=== PATIENT | female | born 1995 | race Hispanic/Latino ===

== ENCOUNTER 2020-09-17 05:27 | Inpatient (IN) | payer OTHER ==
[2020-09-17] MEDS ORDERED: OXYTOCIN/LR 20 UNIT/1,000 ML BAG IV ONE (05:35)
[2020-09-17] MEDS ORDERED: Ringers Lactate 2,000 ML IV ONE (06:19)
[2020-09-17 06:29] LABS: Absolute Lymphocytes (CBC) 2.6 K/uL (0.7-4.9); Basophils % 0.3 % (0-1.3); Hematocrit 32.5 % (36.0-45.0); MPV 8.5 fL (7.6-11.3); RBC Red Blood Cell Count 3.76 M/uL (3.86-4.86)
[2020-09-17 06:30] VITALS: BMI 35.9
[2020-09-17] MEDS ORDERED: PROMETHAZINE INJ 25 MG/ML AMP IM PRN (06:52)
[2020-09-17] MEDS ORDERED: Ringers Lactate 1,000 ML IV PRN (06:52)
[2020-09-17] MEDS ORDERED: MIDAZOLAM HCL 2 MG/2 ML INJ IV PRN (06:52)
[2020-09-17] MEDS ORDERED: BUTORPHANOL 1 MG/ML INJ IV PRN (06:52)
[2020-09-17] MEDS ORDERED: METHYLERGONOVINE 0.2MG/ML AMP IM PRN (06:52)
[2020-09-17] MEDS ORDERED: MEPERIDINE HCL 25 MG/ML SYR IV PRN (06:52)
[2020-09-17] MEDS ORDERED: PENICILLIN 5 MU in NA CHLORIDE 0.9% 100 ML IV ONE (06:52)
[2020-09-17] MEDS ORDERED: CARBOPROST TROME 250 MCG/ML IM PRN (06:52)
[2020-09-17 06:54] LABS: Urine Appearance CLOUDY (Clear); Urine Bilirubin NEGATIVE (Negataive); Urine Blood NEGATIVE (Negative); Urine Color YELLOW (Yellow); Urine Glucose NEGATIVE (Negative); Urine Protein NEGATIVE (Negative); Urine Urobilinogen 0.2 mg/dL (0.2-1.0)
[2020-09-17] MEDS ORDERED: Ringers Lactate 1,000 ML IV SCH (07:00)
[2020-09-17] MEDS ORDERED: OXYTOCIN/LR 20 UNIT/1,000 ML BAG IV SCH (07:00)
[2020-09-17 07:10] LABS: Urine Bacteria 20-50 /HPF (<20); Urine RBC <5 /HPF (NONE SEEN); Urine Urothelial Cells <5 /HPF (NONE SEEN)
[2020-09-17] MEDS ORDERED: FAMOTIDINE 20 MG/2 ML VIAL IV PRN (07:17)
[2020-09-17] MEDS ORDERED: FAMOTIDINE 20 MG/2 ML VIAL IV ONE (07:40)
[2020-09-17] MEDS ORDERED: miSOPROStoL 100 MCG TAB VAG PRN (08:18)
--- NOTE | 2020-09-17 11:41 | PREOPHP ---
Date of Admission: 09/17/2020 History Of Present Illness: A 25-year-old, 3, para 1, 39 weeks 3 days, requesting induction. Pros and cons of this thoroughly discussed. This patient is not significantly dilated. The patien t wishes to proceed. She has been started on penicillin. She is marifer regularly, but still is only 1.5, very posterior, 50% and the baby is at -1 to -2 station. We will await further descent of the baby before we attempt membrane rupture. She knows if membrane rupture occurs spontaneously to let the nurses know so we can make sure there is no cord prolapse. Full labor talk given. Family History: Noncontributory. Allergies: SHE IS NOT ALLERGIC TO ANYTHING. Social History: She does not smoke. Physical Examination: HEENT: Clear. Pupils equal, round, reactive to light and accommodation. Conjunctivae well perfused . No oral, lingual, or buccal lesions. Chest and Lungs: Clear. Heart: Without murmurs, thrills, heaves, or rubs. Breasts: Not examined. Abdomen: Term size. Extremities: Clear without edema, cyanosis, or clubbing. Pelvic: As stated. Assessment/plan: Anticipate delivery sometime later today. O positive, immune to rubella. COVID ne gative. Beta strep positive and she is receiving antibiotics. BYRON/CATRINA Voice ID: [id number]
[2020-09-17] MEDS ORDERED: PENICILLIN 2.5 MU in NA CHLORIDE 0.9% 100 ML IV SCH (13:00)
--- NOTE | 2020-09-17 13:10 | PN ---
The patient is basically having no contractions. I have given her 3 options. I suggested she go radha e and see me again on Tuesday and then to see if she is ready to induce or even again on the next . She is only 39 weeks and 3 days. Her suggested the same thing to her, but she and her m other decided that they wished to proceed with Cytotec. Discussion including hypertonic contractions and the risk of discussed. The patient also given the option of going back on the oxytocin , but she has decided to go with Cytotec. We have inserted 50 mcg of Cytotec. We will again in 6 ho urs if needed up to 3 doses. Full discussion with patient and she has decided on this route which is reasonable, but I do not think it is the best route to approach this with and have stated so. BYRON/CATRINA Voice ID: [id number] Report ID: [id number]
[2020-09-17] MEDS ORDERED: METHYLERGONOVINE 0.2MG/ML AMP IM ONE (19:39)
--- NOTE | 2020-09-17 19:56 | PN ---
Bailey Lomas had her second dose of Cytotec 50 mcg started at 2:30 this afternoon. She is contrac ting regularly. Baby looks good. She seems to be in good spirits at this point. She is now 3 cm, s till somewhat posterior. Baby does come down, but still to have rupture of membranes. She knows if membranes rupture spontaneously, she is to tell the nurse and may check her immediately. We plan on putting the third Cytotec dose and at 8:30 this evening unless membranes of rupture and then wait unt il around 2 to 4 in the morning to start oxytocin if it is necessary. The patient says she is good w ith that and wants to continue on the way we are going. She has had 1 dose of Stadol and now is quit e alert, does not seem to be requesting any other analgesics at this point. She has had 3 doses of p enicillin, but she is really not in active labor yet. We will hold up on the fourth dose of penicill in until either rupture of membranes occur or she gets to 4-5 cm in which case we will start it back at that point. BYRON/CATRINA Voice ID: [id number] Report ID: [id number]
[2020-09-17] MEDS ORDERED: FENTANYL CITR 100 MCG/2 ML IV ONE (21:06)
[2020-09-17] MEDS ORDERED: ROPIVACAINE HCL 0.2% 20ML AMP EP ONE (21:09)
[2020-09-17] MEDS ORDERED: ROPIVACAINE HCL/PF 0.2% 10 ML VIAL EP ONE (21:10)
[2020-09-17] MEDS ORDERED: ROPIVACAINE HCL 100 ML EP ONE (21:23)
[2020-09-17] MEDS ORDERED: ROPIVACAINE HCL 0 ML ONE (21:23)
[2020-09-17] MEDS ORDERED: FENTANYL CITR 100 MCG/2 ML ONE (21:23)
[2020-09-17 21:24] LABS: RPR (Rapid Plasma Reagin) NON-REACT (NON-REACT)
[2020-09-17] MEDS ORDERED: LIDOCAINE 2% 20 ML MDV IV ONE (21:49)
[2020-09-17] MEDS ORDERED: LIDOCAINE 2% MPF 5 ML VIAL ONE (22:06)
[2020-09-18] MEDS ORDERED: NA CIT/CITRIC AC 30 ML ORAL UDC PO ONE (01:47)
[2020-09-18] MEDS ORDERED: METHYLERGONOVINE 0.2MG/ML AMP IM ONE ×2 (01:52→02:44)
[2020-09-18] MEDS ORDERED: NA CIT/CITRIC AC 30 ML ORAL UDC ONE ×2 (02:05→02:35)
--- NOTE | 2020-09-18 02:06 | PN ---
The patient has progressed to about 7.5 to 8 cm. She has edematous anterior lip. The baby is straig ht occiput posterior and still about 0 station. I have put on a scalp electrode. The baby is starti ng to demonstrate a tachycardia in the 160- 170 range. No major decelerations. We are going to look at the variability and see what that looks like. We have shut off the Pitocin, but she is still cou rse marifer regularly. She is quite comfortable with her epidural. Situation explained to her a nd the family. We will see in the next few minutes whether we decided proceed with or qiana nue with vaginal delivery attempt. BYRON/CATRINA Voice ID: [id number] Report ID: [id number]
[2020-09-18] MEDS ORDERED: METOCLOPRAMIDE 10 MG/2mL INJ IV ONE (02:08)
[2020-09-18] MEDS ORDERED: CEFAZOLIN/NS 1gm 1 GM/50 ML BAG IVPB ONE (02:08)
[2020-09-18] MEDS ORDERED: FAMOTIDINE 20 MG/2 ML VIAL IV ONE (02:08)
[2020-09-18] MEDS ORDERED: METOCLOPRAMIDE 10 MG/2mL INJ ONE (02:35)
[2020-09-18] MEDS ORDERED: CEFAZOLIN/SWI 1gm 1 GM/10 ML SYR ONE (02:37)
[2020-09-18] MEDS ORDERED: CARBOPROST TROME 250 MCG/ML IM ONE (02:44)
[2020-09-18] MEDS ORDERED: LIDOCAINE 2% W/EPI 1:200,000 MPF 20 ML VIAL IM ONE (02:54)
[2020-09-18] MEDS ORDERED: OXYTOCIN 10 UNIT/ML ML IV ONE (03:08)
[2020-09-18] MEDS ORDERED: propofoL 200 MG/20 ML VIAL IV ONE (03:15)
[2020-09-18] MEDS ORDERED: ONDANSETRON 4 MG/2 ML VIAL ONE (03:29)
[2020-09-18] MEDS ORDERED: MORPHINE SULFATE/PF 1 MG/ML (10 ML AMP) ONE (03:30)
[2020-09-18] MEDS ORDERED: BISACODYL 10 MG RECTAL SUPP RC PRN (03:32)
[2020-09-18] MEDS ORDERED: ACETAMINOPHEN 500 MG TAB PO PRN ×2 (03:32)
[2020-09-18] MEDS ORDERED: Oxycodone HCl/Acetaminophen 1 TAB TAB PO PRN ×2 (03:32)
[2020-09-18] MEDS ORDERED: ONDANSETRON 4 MG/2 ML VIAL IV PRN (03:32)
[2020-09-18] MEDS ORDERED: DIPHENHYDRAMINE 25 MG TAB/CAP PO PRN (03:32)
[2020-09-18] MEDS ORDERED: ONDANSETRON 4 MG (ODT) TAB PO PRN (03:32)
[2020-09-18] MEDS ORDERED: CEFAZOLIN 1GM (PREMIX IV) 50 ML IV ONE (03:32)
[2020-09-18] MEDS ORDERED: METHYLERGONOVINE 0.2 MG TAB PO PRN (03:32)
[2020-09-18] MEDS ORDERED: FENTANYL CITR 250 MCG/5 ML ONE (03:37)
[2020-09-18] MEDS ORDERED: CEFAZOLIN/SWI 1gm 1 GM/10 ML SYR IV ONE (03:45)
[2020-09-18] MEDS ORDERED: D5LR 1,000 ML with OXYTOCIN 20 UNIT IV SCH ×2 (04:00)
[2020-09-18 04:52] VITALS: O2SAT 100
--- NOTE | 2020-09-18 05:27 | OP ---
Surgeon: Gordon Diaz MD Computer Hardware Designer: Computer Hardware Designer Surgeon: Dr. Somers. Anesthesiologist: Dr. Joseph. Indications: Bailey Lomas, 25-year-old female, 3, para 1, had Cytotec inserted x2 yesterd ay, experienced spontaneous rupture of membranes, and was started on oxytocin, requested and received epidural anesthesia which gave good effect. The patient was noted to be occiput posterior, reached 8.5 cm, and noted to have a very severe anterior cervical lip edema. This was attempted to be reduce d but was unsuccessful. Baby started losing variability and started having decelerations. It was de cided to proceed with . Infection; blood loss; anesthetic complications; injury to bladder, bowel, ureter; postoperative complications; clots in legs; and pneumonia discussed. The patient know s fully well this does not constitute all the possible problems that could occur during or following surgery. Procedure In Detail: After the patient was placed on the table, prepped and draped, time-out was per formed. She had received 5 doses of penicillin during the labor secondary to being positive for beta strep, 1 g of Ancef prior to the surgery. A Pfannenstiel incision was created. The incision was ca rried to the fascia. The fascia was incised and incision was carried transversely bilaterally. Ante rior and posterior fascial planes were developed with both blunt and sharp dissection. Rectus muscle s . Peritoneum entered. Retraction applied. Low transverse bladder flap developed. Low t ransverse uterine incision created. An 8-pound 9-ounce female delivered straight occiput posterior. Apgars 9 and 9. Cord blood specimen obtained. Placenta was removed manually. Uterus was cleared o f clot and blood and exteriorized. Cervical os was widely dilated prior to the procedure. Membranes were stripped away from the lining of the uterus. Uterus was closed with a running locked stitch of 1 chromic followed by a single mhrccm-[id number] stitch in the left angle for complete hemostasis. Es timated blood loss 900 to 950 cc. Mild uterine hypotonus. 0.2 mg of Methergine IM. Gutters cleared of clot and blood. Uterus was replaced into the peritoneal cavity. No further bleeding seen. The muscles were reapproximated using interrupted sutures of 0 Vicryl. The fascia was closed with 1 Vicr yl running from either angle to the midline. Subcutaneous tissue closed with 2-0 plain. Washburn use d for the skin. The patient tolerated all procedures well, transferred back to her room in good cond ition. Final Diagnoses: Term intrauterine , Cytotec for labor induction, failure to progress in la bor, non-reassuring heart tones. Positive beta strep status. Primary section. Epidu ral anesthesia. Mild uterine hypotonus. NBC/MODL Voice ID: [id number] Report ID: [id number]
[2020-09-18] MEDS: KETOROLAC 30 MG/ML INJ IM PRN ×2 (06:30→21:00)
--- NOTE | 2020-09-18 08:38 | PN ---
Vital stable. Output good. Lochia normal. The patient is doing quite well. H and H pending at lisandra roximately 10 o'clock. We will probably let her begin ambulation later today and she has reported th at she is hungry, maybe feed her a little bit later this afternoon. Doing well. BYRON/CATRINA Voice ID: [id number] Report ID: [id number]
--- NOTE | 2020-09-18 09:03 | PN ---
The patient's IV came out, has just now been restarted. She is not on Pitocin at this point and is h aving minimal contractions. Pelvic check shows 1.5 cm still posterior and baby is still extremely hi gh. Options given to the patient and her significant other. We could: 1.Stop attempts at induction, send her home, and see her again Tuesday in the office and then induce her Tuesday or some time early next week when the cervix begins more favorable. 2.We could switch to Cytotec since she is having minimal or no contractions to try to stimulate cerv ical change that way. 3.We can go back to the Pitocin and then persist, although I think that this is not a very good opti on at this point since she is not real favorable. The patient and her significant other apparently h ave difference of opinion as to what to do. They will discuss and then let us know. BYRON/CATRINA Voice ID: [id number] Report ID: [id number]
--- NOTE | 2020-09-18 09:03 | PN ---
Patient had anterior cervical lip, which is becoming more edematous. Attempt was made to reduce that lip but was ineffective. Baby showed some deep decelerations. We have stopped pushing. Pitocin morales s been stopped. She is still having contractions, but we have decreased dcaw-ko-esje variability and a baseline of 160 to 170 beats per minute. We have decided to proceed with . Infection, bl ood loss, anesthetic complications, clots in the legs discussed as risks and complications. Patient has had 5 doses of penicillin because of her strep status. Dr. Joseph has been notified for anesthesia , Dr. Somers for insurance sales assistant surgery, and we have people on the way, but we are getting no major decel erations. At this point, we will check the patient 1 more time before we take her back and see if po ssibly there has been any progress. She reached approximately 9 cm with a very anterior lip. Baby i s still occiput posterior. She has been trying pelvic rocks to no avail. The patient and family cou nseled. BYRON/CATRINA Voice ID: [id number] Report ID: [id number]
[2020-09-18] MEDS: OXYTOCIN/LR 20 UNIT/1,000 ML BAG IV SCH ×2 (18:16→22:10)
[2020-09-19] MEDS ORDERED: MAGNESIUM HYDROXIDE 8% 30 ML PO PRN (03:32)
[2020-09-19] MEDS: IBUPROFEN 200 MG TAB PO PRN ×2 (05:15→11:40)
--- NOTE | 2020-09-19 09:12 | DS ---
Hospital Course: Bailey Lomas is a 25-year-old 3, para 1, 39 weeks and 4 days at time of delivery, had Cytotec inserted x2, then experienced spontaneous rupture of membranes, put on Pitocin, progressed to approximately 8.5 cm, developed a severe swelling of anterior cervical lip. Baby was noted to be persistent occiput posterior. Then, the baby started having decelerations. Attempt was made to reduce the cervix, but this was unsuccessful; therefore, it was decided to proceed with alexandrea alcides section for failure to progress and nonreassuring heart tones. The patient had functioning epidu ral, this worked well during the procedure. She was delivered of an 8 pounds 10 ounces female, s 9 and 9, persistent occiput posterior, mild uterine hypotonus, 900-950 cc blood loss. She was beta strep positive and received penicillin x5 during her labor and 2 additional doses of Ancef before an d after the surgery. Postoperatively, she has done well, afebrile, ambulating, voiding. Lochia is n ormal. She will be observed and either dismissed later this evening or tomorrow morning to report ba ck to my office in 1 week for followup to report any temperature elevation of 100 degrees or greater, severe pain, heavy bleeding, or any other type of abnormalities. Dismissed with tramadol for analge jacques. She is Rh positive, immune to rubella, positive beta strep, negative COVID. No post epidural p roblems. Tdap has been suggested numerous times during the and offered again today. Final Diagnoses: Term intrauterine , Cytotec for labor induction, failure to progress in la bor, nonreassuring heart tones, primary section, mild uterine hypotonus, penicillin pr ophylaxis, epidural anesthesia, Tdap offered. BYRON/MODL Voice ID: [id number] Report ID: [id number]
[2020-09-19 11:48] VITALS: BP 140/70
[2020-09-19] MEDS ORDERED: Tdap (Diph,Pertuss(Acell),Tet Vac) 0.5 ML SYR IMVAC ONE (13:23)
[2020-09-19 16:57] VITALS: TEMP 98.3
[2020-09-20 21:12] LABS: HBsAG Nonreactive (Nonreactive)
== END 2020-09-19 16:40 | disposition home or self-care (01) | DRG 788 ==
LOC: 2ND-WC 05:27
PROVIDERS: ADMIT Specialist; ATTEND Specialist
PROC: 3E0P7VZ Introduction of Hormone into Female Reproductive, Via Natural or Artificial Opening (ICD-10-PCS; 2020-09-18)
PROC: 4A0H7CZ Measurement of Products of Conception, Cardiac Rate, Via Natural or Artificial Opening (ICD-10-PCS; 2020-09-18)
PROC: 10D00Z1 Extraction of Products of Conception, Low, Open Approach (ICD-10-PCS; principal; 2020-09-18 02:53)
DX: O99.824 Streptococcus B carrier state complicating childbirth (principal); O62.0 Primary inadequate contractions; O65.5 Obstructed labor due to abnormality of maternal pelvic organs; O76 Abnormality in fetal heart rate and rhythm complicating labor and delivery; O34.43 Maternal care for other abnormalities of cervix, third trimester; Z3A.39 39 weeks gestation of pregnancy; Z37.0 Single live birth; Z20.822 Contact with and (suspected) exposure to COVID-19; Z23 Encounter for immunization
CPT/HCPCS: 36415; 81001; 85014; 85025; 86592; 86901; 87086; 87088; 87340; 88307; 90471; 90715; J0595; J0690; J2210; J2405; J2540; J2550; J2590; J2704; J2765; J2795; J3010; J7120; J7121; U0003

== ENCOUNTER 2021-06-03 10:08 | Inpatient (IN) | payer OTHER ==
[2021-06-03] MEDS ORDERED: NA CHLORIDE 0.9% 1,000 ML ONE ×3 (10:34→18:56)
[2021-06-03 10:40] LABS: Urine Blood 1+ (Negative); Urine Glucose Negative (Negative); Urine Protein 2+ (Negative); Urine Specific Gravity 1.015 (1.005-1.030); Urine pH 6.5 (5.0-7.0)
[2021-06-03 11:05] LABS: Urine Bacteria >50 /HPF (<20); Urine RBC <5 /HPF (NONE SEEN)
[2021-06-03 11:09] LABS: Absolute Lymphocytes (CBC) 0.8 K/uL (0.7-4.9); Hematocrit 30.3 % (36.0-45.0); Lymphocytes % 5.9 % (15.3-44.8); MPV 7.8 fL (7.6-11.3); RBC Red Blood Cell Count 3.54 M/uL (3.86-4.86)
[2021-06-03 11:27] LABS: Urine Specific Gravity/Preg 1.015 (1.005-1.030)
[2021-06-03 11:30] LABS: ALT/SGPT 24 U/L (12-78); AST/SGOT 13 U/L (15-37); Albumin 2.7 g/dL (3.4-5.0); Alkaline Phosphatase 89 U/L (45-117); BUN Blood Urea Nitrogen 7 mg/dL (7-18); Bicarbonate 23 mmol/L (21-32); Bilirubin Direct 0.1 mg/dL (0-0.2); Bilirubin Total 0.3 mg/dL (0.2-1.0); Glucose Level 101 mg/dL (74-106); Lipase 114 U/L (73-393); Potassium 3.4 mmol/L (3.5-5.1); Protein, Total 6.7 g/dL (6.4-8.2); Sodium Level 134 mmol/L (136-145)
[2021-06-03] MEDS ORDERED: CEFTRIAXONE 1000 MG/VIAL ONE (11:53)
[2021-06-03] MEDS ORDERED: ACETAMINOPHEN 500 MG TAB ONE ×2 (11:55→18:51)
--- NOTE | 2021-06-03 11:56 | RAD REPORT ---
EXAM DESCRIPTION: US - Abdomen Exam Limited - 06/03/2021 11:39 am CLINICAL HISTORY: RUQ pain COMPARISON: No comparisons FINDINGS: The gallbladder demonstrates no gallstones. No pericholecystic fluid or gallbladder wall t hickening. The common bile duct is normal measuring 3 mm. The liver demonstrates no findings of intrahepatic biliary dilatation. IMPRESSION: Unremarkable examination. Negative for cholelithiasis or acute cholecystitis.
--- NOTE | 2021-06-03 11:58 | RAD REPORT ---
EXAM DESCRIPTION: US - 1St Trimest Single 1St Fetus - 06/03/2021 11:47 am CLINICAL HISTORY: ABD PAIN COMPARISON: No comparisons FINDINGS: Single IUP identified. heart tones are present. The crown-rump length measures 3.8 c m which is consistent with 10 weeks 5 days. No adnexal masses. IMPRESSION: Single viable IUP with positive heart tones measuring 10 weeks 5 day by crown-rump length with estimated date of delivery of 12/25/2021.
[2021-06-03 12:09] LABS: Blood Morphology Comment NOT SEEN (NOT SEEN); Platelet Estimate ADEQ
[2021-06-03 12:17] LABS: SARS-COV-2 RT PCR POSITIVE (NEGATIVE)
--- NOTE | 2021-06-03 12:48 | ER ---
Nurse's Notes [facility] Name: Bailey Lomas Age: 26 yrs Sex: Female : 1995 Arrival Date: 06/03/2021 Time: 10:12 Bed 14 Private MD: Diagnosis: Coronavirus infection, unspecified;Pyelonephritis acute;10 weeks gestation of Presentation: 06/03 10:17 Chief complaint: Patient states: "I'm having really bad back pain and chills." Pt ss reports pain began Tuesday, described as sharp R flank pain. Pt states that she is , but does not know how far along she is. Coronavirus screen: Client denies travel out of the [place] in the last 14 days. Ebola Screen: Patient denies exposure to infectious person. Patient denies travel to an Ebola-affected area in the 21 days before illness onset. Initial Sepsis Screen: Does the patient meet any 2 criteria? No. Patient's initial sepsis screen is negative. Does the patient have a suspected source of infection? No. Patient's initial sepsis screen is negative. Risk Assessment: Do you want to hurt yourself or someone else? Patient reports no desire to harm self or others. Onset of symptoms was May 31, 2021. 10:17 Method Of Arrival: Ambulatory ss 10:17 Acuity: DEZ 3 ss Triage Assessment: 11:00 General: Appears in no apparent distress. Behavior is calm, cooperative. morales BI SPECIALIST: 10:22 LMP 01/2021 ss Historical: - Allergies: 10:22 No Known Allergies; ss - Home Meds: 10:22 None [Active]; ss - PMHx: 10:22 None; ss - PSHx: 10:22 section; ss - Immunization history:: Client reports having NOT received the Covid vaccine. - Social history:: Smoking status: Patient denies any tobacco usage or history of. Screenin:00 Abuse screen: Denies threats or abuse. Denies injuries from another. Nutritional morales screening: No deficits noted. Tuberculosis screening: No symptoms or risk factors identified. Fall Risk Assessment: 10:57 Pain: Complains of pain in back and abdomen. GI: Bowel sounds present X 4 quads. Abd is morales soft Abd is non tender. 06/04 09:45 Reassessment: Flagyl 500mg IV administered as ordered; tylenol 500mg PO administered as eo2 ordered. 09:54 Reassessment: Pt is aaox4, reports headache and mid-right upper quadrant abd pain, eo2 3/10. Pt states LMP unknown, , IUP 10weeks and 5days, denies any vaginal bleeding at this time. Pt appears in NAD, updated on plan, verbalized understanding;comfort measures met, will continue to monitor. Vital Signs: 06/03 10:17 BP 121 / 79; Pulse 123; Resp 17; Temp 97.8(O); Pulse Ox 98% on R/A; Weight 84.37 kg; ss Height 5 ft. 4 in. (162.56 cm); 12:02 BP 108 / 57; Pulse 117; Resp 18; Pulse Ox 100% on R/A; morales 13:13 BP 103 / 54; Pulse 117; Resp 18; Pulse Ox 99% on R/A; morales 14:50 BP 108 / 64; Pulse 116; Resp 18; Pulse Ox 100% on R/A; morales 06/04 09:38 BP 101 / 63; Pulse 84; Resp 17; Temp 99.8; Pulse Ox 100% ; Pain 3/10; eo2 10:00 BP 104 / 61; Pulse 93; Resp 17; Pulse Ox 99% ; Pain 2/10; eo2 06/03 10:17 Body Mass Index 31.93 (84.37 kg, 162.56 cm) ED Course: 06/03 10:12 Patient arrived in ED. mr 10:20 Triage completed. ss 10:22 Arm band placed on left wrist. ss 10:24 Pranav Porter NP is PHCP. pm1 10:24 Ravindra Mims MD is Attending Physician. pm1 10:58 Basic Metabolic Panel Sent. morales 10:58 CBC with Diff Sent. morales 10:58 Hepatic Function Sent. morales 10:58 Lipase Sent. morales 10:58 Test Urine - POC Sent. morales 11:00 Patient has correct armband on for positive identification. morales 11:00 No provider procedures requiring assistance completed. Inserted saline lock: 20 gauge morales in right antecubital area, using aseptic technique. 11:15 Abo/rh Typing Sent. morales 11:15 Quantitative Hcg Sent. morales 11:39 US Abdomen Limited In Process Unspecified. EDMS 11:47 1St Trimest Single 1St Fetus In Process Unspecified. EDMS 12:46 Gordon Diaz MD is Hospitalizing Provider. pm1 19:01 Sydney Perez, RN is Primary Nurse. jh6 06/04 11:59 Report given to Damián VALLEJO. eo2 11:59 Patient admitted, IV remains in place. eo2 Administered Medications: 06/03 10:48 Drug: NS 0.9% 1000 ml Route: IV; Rate: 1000 ml; Site: right antecubital; morales 13:04 Follow up: IV Status: Completed infusion morales 12:03 Drug: Rocephin (cefTRIAXone) 1 grams Route: IV; Rate: calculated rate; Site: right morales antecubital; 12:03 Follow up: IV Status: Completed infusion morales 12:03 Drug: Tylenol 1000 mg Route: PO; morales 12:03 Follow up: Response: No adverse reaction morales 13:04 Drug: NS 0.9% 1000 ml Route: IV; Rate: 125 ml/hr; Site: right antecubital; morales 16:52 Not Given (SEE MEDITECH ): morphine 2 mg IVP once; RASS on ADMIN: Combtv4, Very Agttd3, ss Agttd2, Rstlss1, AlertClm0, Drwsy-1, Lt Sdtn-2, Mod Sdtn-3, Dp Sdtn-4, UnArsble-5 Outcome: 12:47 Decision to Hospitalize by Provider. pm1 06/04 11:59 Admitted to Med/surg accompanied by tech. eo2 Condition: stable Instructed on the need for admit. 12:00 Patient left the ED. Signatures: Dispatcher [facility] ED[facility] Meenu VivarPromise marks, RN RN Pranav Porter, VENEER TAPING MACHINE OFFBEARER VENEER TAPING MACHINE OFFBEARER pm1 Sydney Perez, RN RN [facility] Jane-StagerKaruna RN RN Daija Nunez RN RN eo2 Corrections: (The following items were deleted from the chart) 06/03 11:47 11:39 In radiology for Transvaginal Ob+US.RAD.BRZ. EDMS EDMS
--- NOTE | 2021-06-03 12:48 | EDPHYS ---
Physician Documentation [facility] Name: Bailey Lomas Age: 26 yrs Sex: Female : 1995 Arrival Date: 06/03/2021 Time: 10:12 Bed 14 Private MD: ED Physician Ravindra Mims HPI: 06/03 10:56 This 26 yrs old Female presents to ER via Ambulatory with complaints of pm1 Abdominal Pain, Back Pain, Chills. 10:56 The patient presents with pain that is acute, with no known mechanism of injury. The pm1 symptoms are located in the right mid back. Onset: The symptoms/episode began/occurred 3 day(s) ago. The pain radiates to the right upper quadrant. Associated signs and symptoms: Pertinent positives: chills, Pertinent negatives: dysuria, nausea, vomiting, diarrhea. The problem was sustained from unknown cause. Modifying factors: The patient symptoms are alleviated by nothing, the patient symptoms are aggravated by nothing. Severity of symptoms: in the emergency department the symptoms are actually worse. The patient has not experienced similar symptoms in the past. The patient has not recently seen a physician, has an appointment scheduled, to see her orthotic aide for an ultrasound. 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 - Social history:: Smoking status: Patient denies any tobacco usage or history of. ROS: 10:56 Cardiovascular: Negative for chest pain, palpitations, and edema, Respiratory: Negative pm1 for shortness of breath, cough, wheezing, and pleuritic chest pain. 10:56 : Negative for injury, bleeding, discharge, and swelling, MS/Extremity: Negative for injury and deformity, Skin: Negative for injury, rash, and discoloration, Neuro: Negative for headache, weakness, numbness, tingling, and seizure. 10:56 Constitutional: Positive for chills. 10:56 Abdomen/GI: Positive for abdominal pain, of the epigastric area and right upper quadrant, Negative for nausea, vomiting, and diarrhea. 10:56 Back: Positive for of the right mid back, pain. 10:56 All other systems are negative. Exam: 10:56 Constitutional: This is a well developed, well nourished patient who is awake, alert, pm1 and in no acute distress. Head/Face: Normocephalic, atraumatic. 10:56 Skin: Warm, dry with normal turgor. Normal color with no rashes, no lesions, and no evidence of cellulitis. MS/ Extremity: Pulses equal, no cyanosis. Neurovascular intact. Full, normal range of motion. 10:56 Eyes: Exam is negative for acute changes, Periorbital structures: appear normal, Extraocular movements: no acute changes, Sclera: no acute changes, icterus, is not appreciated. 10:56 ENT: Exam is negative for acute changes, Mouth: no acute changes, Lips: normal, moist, Oral mucosa: normal, pink and intact, moist. 10:56 Cardiovascular: Exam negative for acute changes, Rate: tachycardic, Rhythm: regular, Pulses: no pulse deficits are appreciated. 10:56 Respiratory: Exam negative for acute changes, respiratory distress, shortness of breath, Breath sounds: are clear throughout. 10:56 Abdomen/GI: Inspection: obese Palpation: soft, in all quadrants, mild abdominal tenderness, in the epigastric area and right upper quadrant. 10:56 Back: pain, that is mild, of the right mid back. 10:56 Neuro: Exam negative for acute changes, Orientation: is normal, Mentation: is normal, Motor: is normal, moves all fours. Vital Signs: 10:17 BP 121 / 79; Pulse 123; Resp 17; Temp 97.8(O); Pulse Ox 98% on R/A; Weight 84.37 kg; ss Height 5 ft. 4 in. (162.56 cm); 12:02 BP 108 / 57; Pulse 117; Resp 18; Pulse Ox 100% on R/A; morales 13:13 BP 103 / 54; Pulse 117; Resp 18; Pulse Ox 99% on R/A; morales 14:50 BP 108 / 64; Pulse 116; Resp 18; Pulse Ox 100% on R/A; morales 06/04 09:38 BP 101 / 63; Pulse 84; Resp 17; Temp 99.8; Pulse Ox 100% ; Pain 3/10; eo2 10:00 BP 104 / 61; Pulse 93; Resp 17; Pulse Ox 99% ; Pain 2/10; eo2 06/03 10:17 Body Mass Index 31.93 (84.37 kg, 162.56 cm) ss MDM: 06/03 10:26 Patient medically screened. pm1 12:20 Counseling: I had a detailed discussion with the patient and/or guardian regarding: the pm1 historical points, exam findings, and any diagnostic results supporting the discharge/admit diagnosis, lab results, radiology results, the need for further work-up and treatment in the hospital. 12:20 Data reviewed: vital signs. Data interpreted: Pulse oximetry: on room air is 100 %. pm1 Interpretation: normal. 12:43 Physician consultation: Gordon Diaz MD was called at 12:29, was contacted at 12:43, pm1 regarding admission, patient's condition, and will see patient Rocephin Q12, CBC in AM, NS 150-175mL/hr, Morphine PRN for pain and Zofran 4mg PRN. 06/03 10:27 Order name: Urine Microscopic Only; Complete Time: 11:11 pm06/03 10:34 Order name: COVID-19/FLU A+B (Document "Date of Onset" if Symptomatic); Complete Time: pm1 12:20 06/03 10:39 Order name: Strep; Complete Time: 11:33 pm06/03 10:40 Order name: Urine Dipstick-Ancillary; Complete Time: 10:41 EDME 06/03 10:40 Order name: Basic Metabolic Panel; Complete Time: 11:33 pm06/03 10:40 Order name: CBC with Diff; Complete Time: 12:11 pm06/03 10:40 Order name: Hepatic Function; Complete Time: 11:33 pm1 06/03 10:40 Order name: Lipase; Complete Time: 11:33 pm1 06/03 10:42 Order name: Test Urine - POC; Complete Time: 11:33 5 06/03 10:50 Order name: Quantitative Hcg; Complete Time: 12:11 pm1 06/03 10:50 Order name: Abo/rh Typing; Complete Time: 12:11 pm1 06/03 11:06 Order name: Urine Culture EDME 06/03 11:18 Order name: Throat Culture EDME 06/03 12:09 Order name: Manual Differential; Complete Time: 12:11 EDMS 06/03 10:27 Order name: Urine Dipstick-Ancillary (obtain specimen); Complete Time: 10:48 pm1 06/03 10:27 Order name: Urine Test (obtain specimen); Complete Time: 10:48 pm1 06/03 10:40 Order name: IV Saline Lock; Complete Time: 10:58 pm1 06/03 11:05 Order name: US Abdomen Limited; Complete Time: 12:00 pm1 06/03 11:47 Order name: 1St Trimest Single 1St Fetus; Complete Time: 12:00 EDMS 06/03 16:36 Order name: Basic Metabolic Panel EDMS 06/03 16:36 Order name: Regular EDMS 06/03 16:36 Order name: Basic Metabolic Panel EDMS 06/03 16:36 Order name: CBC with Automated Diff EDMS 06/03 16:36 Order name: CBC with Automated Diff EDMS 06/03 10:40 Order name: Labs collected and sent; Complete Time: 10:58 pm1 Administered Medications: 10:48 Drug: NS 0.9% 1000 ml Route: IV; Rate: 1000 ml; Site: right antecubital; morales 13:04 Follow up: IV Status: Completed infusion morales 12:03 Drug: Rocephin (cefTRIAXone) 1 grams Route: IV; Rate: calculated rate; Site: right morales antecubital; 12:03 Follow up: IV Status: Completed infusion morales 12:03 Drug: Tylenol 1000 mg Route: PO; morales 12:03 Follow up: Response: No adverse reaction morales 13:04 Drug: NS 0.9% 1000 ml Route: IV; Rate: 125 ml/hr; Site: right antecubital; morales 16:52 Not Given (SEE MEDITECH ): morphine 2 mg IVP once; RASS on ADMIN: Combtv4, Very Agttd3, ss Agttd2, Rstlss1, AlertClm0, Drwsy-1, Lt Sdtn-2, Mod Sdtn-3, Dp Sdtn-4, UnArsble-5 Disposition Summary: 06/03/21 12:47 Hospitalization Ordered Hospitalization Status: Observation pm1 Provider: Gordon Diaz pm1 Condition: Stable pm1 Problem: new pm1 Symptoms: have improved pm1 Bed/Room Type: Standard pm1 Location: Telemetry/MedSurg (Inpatient)(06/04/21 11:21) ja1 Room Assignment: 413(06/04/21 11:21) ja Diagnosis - Coronavirus infection, unspecified pm1 - Pyelonephritis acute pm1 - 10 weeks gestation of pm1 Forms: - Medication Reconciliation Form pm1 - SBAR form pm1 Addendum: 06/08/2021 07:06 Co-signature as Attending Physician, Ravindra Mims MD I agree with the assessment and r n plan of care. Attestation: The patient's history, exam findings, diagnostics, and a summary of any interventions or procedures was reviewed in detail with Pranav Porter NP. Signatures: Dispatcher [employer] EDMS Ravindra Mims MD MD rn Smirch, Shelby, RN RN ss Tray Kahn ds4 Pranav Porter NP SCHO[employer] PROGRAM DIRECTOR pm1 George Hawk RN RN [facility] Karuna Weller RN RN Corrections: (The following items were deleted from the chart) 06/03 11:47 11:06 Transvaginal Ob+US.RAD.BRZ ordered. EDME EDMS 14:38 12:47 Telemetry/MedSurg (observation) pm1 ss 14:38 12:47 pm1 ss 06/04 07:08 05 14:38 [facility] ER HOLD ss ds4 06/04 07:08 01 14:38 ERHOLD- ss ds4 06/04 08:53 07:08 Telemetry/MedSurg (Inpatient) ds4 ja1 08:53 07:08 413 4 ja1 11:21 08:53 [facility] ER HOLD ja1 ja1 11:21 08:53 ERHOLD- ja1 ja1
[2021-06-03] MEDS ORDERED: ONDANSETRON 4 MG/2 ML VIAL IV PRN (16:34)
[2021-06-03] MEDS: NA CHLORIDE 0.9% 1,000 ML IV SCH ×2 (16:34→23:14)
[2021-06-03] MEDS ORDERED: MORPHINE 4 MG/ML SYR ONE ×2 (16:37→21:32)
[2021-06-03] MEDS ORDERED: ONDANSETRON 4 MG/2 ML VIAL ONE (16:38)
[2021-06-03] MEDS ORDERED: METRONIDAZOLE 500mg IVPB 500 MG/100 ML BAG IV ONE (16:38)
[2021-06-03] MEDS: MORPHINE 4 MG/ML SYR IV PRN ×2 (16:50→21:39)
[2021-06-03] MEDS: METRONIDAZOLE 500mg IVPB 500 MG/100 ML BAG IV SCH (16:50)
[2021-06-03] MEDS: ACETAMINOPHEN 500 MG TAB PO PRN (18:49)
--- NOTE | 2021-06-03 20:36 | PREOPHP ---
Date of Admission: 06/03/2021 History Of Present Illness: A 26-year-old comes to the emergency room with severe left flank pain. No fever at home, but says she felt feverish. She has been feeling sick for 2-3 days. Ultrasound de monstrates the patient is 10 weeks intrauterine . COVID test was positive. Urine culture i s pending. She has an elevated white count to about 14,000. Vital signs are all normal. She has be en started on Rocephin but states that she is still very uncomfortable. She has only had Tylenol for pain. Family History: Really not contributory. Past Medical History: She has had no significant past medical history for infections. Physical Examination: General: The patient appears to be uncomfortable. HEENT: Clear. Pupils equal, round, reactive to light and accommodation. Heart and Lungs: Have been auscultated by the ER personnel and normal. Breasts: Not examined. Abdomen: Soft, but she has significant flank tenderness, especially on the left side. Pelvic: Exam is not done. Assessment And Plan: She has been started on Rocephin. I think, we will add metronidazole, and righ t now, she needs pain medicines as she is significantly uncomfortable. We will probably give her 2 m g of morphine IV q.4-6 hours until she is feeling better. Right now, she is in the emergency room. Hopefully, they will move her to a more comfortable bed. I told the patient she needs to stay until we can tap on her flank area without any kind of significant discomfort. Full discussion. BYRON/CATRINA Voice ID: [id number]
[2021-06-04] MEDS: METRONIDAZOLE 500mg IVPB 500 MG/100 ML BAG IV SCH ×3 (01:00→16:02)
[2021-06-04] MEDS ORDERED: MORPHINE 4 MG/ML SYR ONE (01:59)
[2021-06-04] MEDS: MORPHINE 4 MG/ML SYR IV PRN ×2 (02:02→16:02)
[2021-06-04 03:24] LABS: Absolute Lymphocytes (CBC) 1.5 K/uL (0.7-4.9); Hematocrit 27.8 % (36.0-45.0); MPV 7.8 fL (7.6-11.3); RBC Red Blood Cell Count 3.21 M/uL (3.86-4.86)
[2021-06-04 03:26] LABS: BUN Blood Urea Nitrogen 6 mg/dL (7-18); Bicarbonate 24 mmol/L (21-32); Glucose Level 119 mg/dL (74-106); Potassium 3.7 mmol/L (3.5-5.1); Sodium Level 140 mmol/L (136-145)
[2021-06-04] MEDS: NA CHLORIDE 0.9% 1,000 ML IV SCH ×3 (05:54→20:33)
[2021-06-04] MEDS ORDERED: NA CHLORIDE 0.9% 1,000 ML ONE (06:48)
--- NOTE | 2021-06-04 07:57 | PN ---
The patient is still in ER holding. She says though she feels better, less flank pain, her temperatu re spiked to 102 last night, but after that it has been normal. White count is still about the same in the 14,000 to 15,000 range. I was concerned about possibility of a stone impacted in the ureter, but at this point since the patient is improving, we will continue to go with IV antibiotics and not do any kind of imaging, such as a one-shot IVP. [facility] We will continue with the antibiotics and hydration. She has not had a ny pain medicine since 1030 last night, shows she is doing much better and she voices since this morn ing that she is feeling better. When she goes 24 hours without a fever and her flank pain is gone, blela gama will send her home on antibiotics for at least 10 days to 2 weeks and then probably on Macrobid to be taken once a day every day for the rest of the . Full discussion with the patient. BYRON/CATRINA Voice ID: [id number] Report ID: [id number]
[2021-06-04] MEDS ORDERED: METRONIDAZOLE 500mg IVPB 500 MG/100 ML BAG IV ONE (09:25)
[2021-06-04] MEDS: ACETAMINOPHEN 500 MG TAB PO PRN (09:45)
[2021-06-04] MEDS ORDERED: ACETAMINOPHEN 500 MG TAB ONE (09:46)
[2021-06-04 12:29] VITALS: O2SAT 99
[2021-06-04 12:57] VITALS: BMI 31.9
[2021-06-04] MEDS: CEFTRIAXONE 1,000 MG in NA CHLORIDE 0.9% 50 ML IVPB SCH ×4 (13:07→20:35)
[2021-06-04] MEDS ORDERED: INFLUENZA VACCINE (for 6+ mo) 0.5 ML DOSE IMVAC ONE (14:00)
[2021-06-04] MEDS ORDERED: CEFTRIAXONE 1000 MG/VIAL ONE (19:50)
[2021-06-04] MEDS ORDERED: NA CHLORIDE 0.9% 50 ML ONE (20:04)
[2021-06-05] MEDS: METRONIDAZOLE 500mg IVPB 500 MG/100 ML BAG IV SCH ×3 (01:08→17:31)
[2021-06-05] MEDS: NA CHLORIDE 0.9% 1,000 ML IV SCH ×4 (01:09→21:54)
[2021-06-05] MEDS: CEFTRIAXONE 1,000 MG in NA CHLORIDE 0.9% 50 ML IVPB SCH ×2 (08:11→21:00)
[2021-06-05] MEDS ORDERED: CEFTRIAXONE 1000 MG/VIAL ONE (21:58)
[2021-06-05] MEDS ORDERED: NA CHLORIDE 0.9% 100 ML ONE (21:59)
[2021-06-06] MEDS: METRONIDAZOLE 500mg IVPB 500 MG/100 ML BAG IV SCH ×2 (01:00→09:00)
[2021-06-06] MEDS: NA CHLORIDE 0.9% 1,000 ML IV SCH (04:34)
[2021-06-06 06:08] LABS: Absolute Lymphocytes (CBC) 2.2 K/uL (0.7-4.9); Hematocrit 31.9 % (36.0-45.0); Lymphocytes % 25.3 % (15.3-44.8); MPV 7.6 fL (7.6-11.3); RBC Red Blood Cell Count 3.74 M/uL (3.86-4.86)
[2021-06-06] MEDS: CEFTRIAXONE 1,000 MG in NA CHLORIDE 0.9% 50 ML IVPB SCH (09:00)
[2021-06-06 09:13] VITALS: BP 113/66; TEMP 98
--- NOTE | 2021-06-06 10:15 | DS ---
10 weeks , admitted with a positive COVID diagnosis but that was not the reason for admission . She had significant pyelonephritis with severe flank pain, fever, chills, elevated white count. Shawna gama was started on Rocephin initially, 2 g in the first 24 hours and then 1 g for 24 hours thereafter a nd metronidazole 500 mg q.8 hours. The culture came back E coli, sensitive to almost everything. Shawna gama is now feeling much better. She says she is ready to go home. She has no flank pain. She has no fever for 36 hours or more. We will send her home with Augmentin, which the E coli is also sensitive to twice a day for 10 days. After that, we will put her on Macrobid 100 mg once a day for prophylax is at night. She is to call my office on Tuesday to make an appointment for followup. She knows to r eport any fever, severe pain, any other problems, but right now I do not expect anything problematic and she should do well the remainder of the as long she follows instructions. Final Diagnosis: Intrauterine gestation at first trimester, 10 to 11 weeks. Pyelonephritis, positiv e COVID but basically asymptomatic from that standpoint, treated and responding, now dismissed. BYRON/CATRINA Voice ID: [id number] Report ID: [id number]
== END 2021-06-06 10:04 | disposition home or self-care (01) | DRG 831 ==
LOC: ER 10:08 → ERHOLD 16:45 → 4TH 06-04 07:56 → ERHOLD 06-04 08:26 → 4TH 06-04 12:45 → OBSVTOIN 06-04 12:56
PROVIDERS: ADMIT Specialist; ATTEND Specialist
DX: O23.01 Infections of kidney in pregnancy, first trimester (principal); U07.1 COVID-19; O98.511 Other viral diseases complicating pregnancy, first trimester; B96.20 Unspecified Escherichia coli [E. coli] as the cause of diseases classified elsewhere; Z3A.10 10 weeks gestation of pregnancy
CPT/HCPCS: 0240U; 36415; 76705; 76801; 80048; 80076; 81003; 81015; 81025; 83690; 84702; 85025; 86900; 86901; 87070; 87077; 87081; 87086; 87088; 87186; 96361; 96374; 99285; G0378; J2405; J7030